=== PATIENT | male | born 1945 | race Caucasian/White ===

== ENCOUNTER 2019-02-26 09:32 | Day surgery (SDC) | payer OTHER ==
[~2019-02-26] VITALS: Ht 180.3 cm; Wt 98.0 kg
[~2019-02-26 09:32] MED LIST: ASCO500 PO; ASPI325 PO; ATEN25 PO; ATOR10; ELIQUIS5 M2 PO; FISH OIL 1,001000 MG PO; FLUO10 PO; LOSA25 PO; Synthroid200 MCG PO; Vitamin D2000 UNIT PO; Vitamin K100 MCG PO
--- NOTE | 2019-02-26 10:52 | NUR ---
Pt very anxious, camy fbs 165 pt took his meds at 0300 insulin this am. Pt is from [place] travelling, Pt spent the night yesterday in [place] and has a motel for the night.
--- NOTE | 2019-02-26 11:13 | NUR ---
Pt with lungs clear, heart irregular.
--- NOTE | 2019-02-26 13:59 | NUR ---
Pt arrived from [facility]. Marques Art gave report, reviewed site right rad wnl. Pt in [facility] with hob 40%. Pt denies pain, call light given. Pt given diabetic drink, Pt with a-fib b/p under better control no anxiety noted at this time.
--- NOTE | 2019-02-26 14:15 | NUR ---
DR. MONTOAY HERE TO DISCUSS RESULTS WITH PATIENT.
[2019-02-26] MEDS ORDERED: ATOR40TA PO (14:20)
[2019-02-26] MEDS ORDERED: Aspirin EC81 MG PO (14:21)
--- NOTE | 2019-02-26 14:41 | NUR ---
Pt given lunch eating. Dr. Hansen here talking to patient regarding findings and change in medication.
--- NOTE | 2019-02-26 15:41 | NUR ---
sbar to Sherif Wilson RN Pt up to brp fluid total 500 ml Right tr-band intact with no noted bleeding. Pt IV hep locked.
--- NOTE | 2019-02-26 17:15 | NUR ---
PT AMB WITHOUT PROBLEM, RADIAL SITE UNCHANGED WITH ACTIVITY.
--- NOTE | 2019-02-26 17:38 | NUR ---
PT RECEIVED DISCHARGE INSTRUCTIONS, MED LIST, PRESCRIPTION, AND RADIAL STIE CARE SUPPLEMENTAL INFORMATION; VERBALIZED GOOD UNDERSTANDING. PT'S IV REMOVED, CANNULA INTACT. PT LEFT FAICILTY VIA W/C, CONDITION STABLE.
== END 2019-02-27 06:53 | disposition home or self-care (01) ==
LOC: MHTC 09:32
DX: I25.10 Atherosclerotic heart disease of native coronary artery without angina pectoris (principal); I35.0 Nonrheumatic aortic (valve) stenosis; I48.91 Unspecified atrial fibrillation; I45.10 Unspecified right bundle-branch block; I10 Essential (primary) hypertension; E78.5 Hyperlipidemia, unspecified; E03.9 Hypothyroidism, unspecified; Z88.8 Allergy status to other drugs, medicaments and biological substances; Z88.6 Allergy status to analgesic agent; Z79.899 Other long term (current) drug therapy; Z79.02 Long term (current) use of antithrombotics/antiplatelets; Z79.82 Long term (current) use of aspirin
CPT/HCPCS: 82947; 93454; 99152; 99153; C1769; C1894; J1644; J2250; J3010; J7030; Q9967